=== PATIENT | male | born 1945 | race Caucasian/White ===

== ENCOUNTER 2024-06-19 13:10 | Inpatient (IN) | payer OTHER, BC ==
[2024-06-19] MEDS ORDERED: ACETAMINOPHEN 500 MG TAB PO PRN (16:28)
[2024-06-19] MEDS ORDERED: BENZONATATE 100 MG CAP PO PRN (16:29)
[2024-06-19 16:47] LABS: Sqamous Epithelial None Seen /HPF (None Seen); Urine Bacteria None Seen /HPF (<20); Urine Bilirubin NEGATIVE (Negative); Urine Blood 1+ (Negative); Urine Clarity Clear (Clear); Urine Color Light-Yellow (Yellow); Urine Crystals Unidentified Few /HPF (None Seen); Urine Culture Reflex Order NOT NEEDED; Urine Glucose TRACE (Negative); Urine Ketones NEGATIVE (Negative); Urine Micro Reflex YN NO BILL MICROSCOPIC; Urine Mucus Slight /HPF (None Seen); Urine Nitrite NEGATIVE (Negative); Urine Protein 3+ (Negative); Urine RBC <5 /HPF (None Seen); Urine Urobilinogen Normal (Normal); Urine WBC <5 /HPF (<5)
[2024-06-19 16:59] VITALS: BMI 21.2
[2024-06-19] MEDS ORDERED: POLYETHYL GLY 3350 17 GM/DOSE PO PRN (17:10)
[2024-06-19] MEDS ORDERED: HYDROCODONE/APAP 5/325 MG TAB PO PRN (17:10)
[2024-06-19] MEDS ORDERED: BUDESONIDE 0.5 MG/2 ML NEB NEB SCH (19:00)
[2024-06-19] MEDS: DOXYCYCLINE 100 MG CAP PO SCH (19:59)
[2024-06-19] MEDS: DOCUSATE NA/SENNA CONC 1 TAB PO SCH (19:59)
[2024-06-19] MEDS: APIXABAN 2.5 MG TABLET PO SCH (19:59)
[2024-06-19] MEDS ORDERED: CARBIDOPA/LEVODOPA 25/100 TAB PO SCH (20:00)
[2024-06-19] MEDS: ATORVASTATIN 40 MG TAB PO SCH (20:00)
[2024-06-19] MEDS: CARBIDOPA/LEVODOPA 25/100 TAB PO SCH (20:00)
[2024-06-19] MEDS ORDERED: HEPARIN 5000 UNIT/ML 1 ML VIAL SQ SCH (20:00)
[2024-06-19] MEDS ORDERED: predniSONE 20 MG TAB PO SCH (20:00)
[2024-06-19] MEDS: ARFORMOTEROL TARTRATE 15 MCG/2 ML VIAL.NEB NEB SCH (20:19)
[2024-06-19] MEDS: BUDESONIDE 0.5 MG/2 ML NEB NEB SCH (20:19)
[2024-06-20] MEDS: atenoloL 50 MG TAB PO SCH (05:34)
[2024-06-20] MEDS ORDERED: PANTOPRAZOLE 40MG TABLET PO SCH (06:30)
[2024-06-20] MEDS ORDERED: FERROUS SULFATE 325 MG TAB PO SCH (08:00)
[2024-06-20] MEDS: AMLODIPINE 5 MG TAB PO SCH (08:53)
[2024-06-20] MEDS: POTASSIUM CL SA 10 MEQ TAB PO SCH (08:54)
[2024-06-20] MEDS: TAMSULOSIN 0.4 MG SR CAP PO SCH (08:54)
[2024-06-20] MEDS: ASPIRIN EC 81 MG TAB PO SCH (08:54)
[2024-06-20] MEDS: FUROSEMIDE 20 MG TABLET PO SCH (08:57)
[2024-06-20] MEDS: FOLIC ACID 1 MG TABLET PO SCH (08:57)
[2024-06-20] MEDS: CYANOCOBALAMIN 1,000 MCG TAB PO SCH (08:57)
[2024-06-20] MEDS: dexAMETHasone 4 MG TAB PO SCH (08:57)
[2024-06-20 09:10] LABS: Absolute Lymphocytes (CBC) 0.9 K/uL (0.7-4.9); Absolute Monocytes 0.7 K/uL (0.1-1.3); Hematocrit 31.3 % (39.6-49.0); Hemoglobin 10.2 g/dL (13.6-17.9); Lymphocytes % 5.2 % (15.3-44.8); MCH 27.9 pg (27.0-35.0); MCHC 32.5 g/dL (32.0-36.0); MPV 9.1 fL (7.6-11.3); Monocytes % 4.2 % (3.3-12.3); Neutrophils % 90.6 % (41.7-73.7); Platelets 253 thou/uL (152-406); RBC Red Blood Cell Count 3.65 M/uL (4.33-5.43); Red Cell Distribution Width 16.4 % (12.1-15.2)
[2024-06-20 09:21] LABS: Albumin 2.7 g/dL (3.4-5.0); Magnesium 2.3 mg/dL (1.6-2.4); Prealbumin 11.5 mg/dL (20-40)
[2024-06-20 10:12] LABS: Blood Morphology Comment NOTED (NOT SEEN); Hypochromasia 2+; Platelet Estimate ADEQ; Platelets Clumped FEW; White Blood Cell Scan OK (OK)
[2024-06-20] MEDS: VALSARTAN 80 MG TAB PO SCH (10:28)
[2024-06-20] MEDS: VITAMIN D 400 UNIT TAB PO SCH (10:29)
[2024-06-20] MEDS: FERROUS SULFATE 325 MG TAB PO SCH (13:10)
[2024-06-20] MEDS: NA CHLORIDE 0.9% 1,000 ML IV SCH (18:16)
[2024-06-20] MEDS: DOCUSATE NA/SENNA CONC 1 TAB PO SCH (19:08)
[2024-06-20] MEDS: CARBIDOPA/LEVODOPA 25/100 TAB PO SCH (19:08)
--- NOTE | 2024-06-20 19:53 | RAD REPORT ---
EXAM DESCRIPTION: RADChest Single View06/20/2024 6:27 pm CLINICAL HISTORY: covid positive COMPARISON: No comparisonsChest Single View dated 03/08/2024; Chest Pa And Lat (2 Views) dated 2022; Chest Single View dated 09/13/2023No comparisonsNo comparisons TECHNIQUE: Portable AP view of the chest. FINDINGS: Mild hyperlucency and diffuse chronic appearing interstitial changes. Some confluent retic ular opacities seen in the right apex. No pneumothorax or effusion. The cardiomediastinal contours a re unremarkable. IMPRESSION: Few confluent reticular opacities seen in the right apex, may reflect scarring/atelectas is, versus COPD exacerbation.
--- NOTE | 2024-06-21 02:21 | HP ---
Date of Admission: 06/19/2024 Time Of Service: 1 p.m. Chief Complaint: "I have COVID. I am weak. I have been falling." History Of Present Illness: Mr. 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 Mr. Nunes had a few days of cough, congestion, nausea and some vomiting with general decline and was taken to [facility]. His workup showed he was COVID positive. Chest CT scan, however, did not show advanced pneumonia. His scan did identify 1.6 cm right kidney mass, which was suspicious for renal cell carcinoma, which has been found previously and the patient is rafa re of. In addition, a 3.6 cm abdominal aortic aneurysm was identified, enlarged prostate and again o n the chest, moderate to marked emphysema. There was no evidence of pulmonary embolus. His KUB did show a large stool burden. He was admitted and received levofloxacin for empiric antibiotics, had an titussives and steroids for the COVID. Did not receive remdesivir or Paxlovid. At this current hosp italization, he will receive Paxlovid. He did require some oxygen 2 L by nasal cannula for hypoxia. Urinalysis was negative and kidney function suggested some dehydration. Creatinine 1.32, BUN 25. G lucose was 148. Liver function studies show AST of 15. Total protein 6.4. Hemoglobin 11, hematocri t 34. As a result of the patient's COVID positivity and chronic pulmonary issues, he is at risk of s evere worsening and therefore requires careful medical evaluation and management. In addition, he lopez s declined significantly as when he was evaluated by Physical and Occupational Therapy Service, he wa s found to be performing much below his baseline level, requiring moderate assist for bed mobilizatio n, [id number], beginning to ambulate only 2 to 3 steps at the bedside and he was found to require 2 L of oxygen via nasal cannula while he was mobilizing. In addition, he did have some issues of pote ntial aspiration and would require Speech to help clear his return to thin liquids and regular solids . As a result, he is determined to be appropriate candidate for inpatient rehabilitation. We will h ave medical management and physical therapy done in combination. Past Medical History: As noted above. Allergies: PENICILLIN. Imaging: Done previously. Chest x-ray on 06/17, shows slightly increased reticulonodular opacificat ion of the right upper lobe, indeterminate acuity. There was a large stool burden on KUB. CT scan o f the chest done 06/17, no evidence of pulmonary thromboembolism. Iqwjxonj-ln-vncaid upper lobe pred ominant central lobular and paraseptal emphysema. Right apical pleural parenchymal scarring. 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 The patient did say he fell about 6 months ago and had a fracture there with some displacement and impaction. There is remodeling of possible destructive changes in the left clavicle head medially. He said there has been decreased range of motion in the left shoulder for quite an extended period of time, just extends into the sternoclavicular joint. Th ere was also the renal mass noted. CT scan of the abdomen and pelvis on 06/17 does show no acute fin dings. Heterogeneous enhancing 1.6 cm mass in the right kidney suspicious for renal cell carcinoma. There was infrarenal abdominal aortic aneurysm measuring 3.6 cm, enlarged prostate, and moderate to marked emphysema. Medications: Tylenol 500 mg every 4 hours as needed, Norvasc 5 mg daily, Eliquis 2.5 mg daily, arfor moterol 15 mcg nebulizer treatment twice daily, aspirin 81 mg daily, Tenormin 50 mg daily, atorvastat in 40 mg at bedtime, Tessalon Perles 100 mg every 6 hours, carbidopa/levodopa 25/100 one tablet twice daily, vitamin C 1000 daily, dexamethasone 6 mg daily, Colace 2 tabs twice daily, ferrous sulfate 325 mg daily, folate 1 mg daily, melatonin 3 mg at bedtime, Lasix 40 mg daily, Zofran 4 mg ev theo 4 hours as needed, potassium 10 mEq daily, Flomax 0.4 mg daily, Diovan 80 mg daily, and vitamin D 50,000 units weekly. Family History: Noncontributory. Social History: The patient lives at home with family. He was fully independent prior to his declin e. No alcohol, tobacco, or IV drug use. Laboratory Studies: White blood cell count elevated to 17.7. Of note, he is on steroids. Will have repeat chest x-ray, urinalysis done. Neutrophils 90.6%, hemoglobin 10.2, hematocrit 31.3. Sodium 1 34, potassium 5.0, chloride 104, carbon dioxide 26, BUN 42, creatinine 1.48, glucose 109. Calcium 9. 6, magnesium 2.3. Albumin 2.7, prealbumin 11.5. Urinalysis: 1+ blood, 3+ protein, trace glucose. Review of Systems: As noted, there was decreased range of motion in the left shoulder. There was also some slight issue in terms of bruising or pain from the fracture in the left humerus, and he thought there was also a fracture in the left forearm from a chronic fall more than 6 months ago. He did say while he was in the room he did slide down and impacted the left side shoulder and the back of his head. He did not call the nurse and he was up back in bed at the time I evaluated him. Those areas were palpated and there were no new findings. He denied any new issues or pain in that area, that is the back of the h ead and the left upper extremity. Bed alarm and chair alarm will be in place. The patient is right at the nursing station to be observed carefully. Current Level Of Functioning: Setup assistance for eating. Supervision for oral hygiene. Moderate assistance for toilet hygiene. Showering, maximum assistance. Upper body dressing, moderate assista nce. Lower body dressing, maximal assistance. Donning/doffing footwear maximal assistance. Rolling right to left and left to right, moderate assistance. Sit to lying and lying to sitting, and slidin g to side of bed, moderate assistance. Sit to stand, moderate assistance. Bed to chair, moderate as sistance. Toileting, moderate assistance. Ambulation, moderate assistance, did cover 3 feet with a rolling walker. Physical Examination: Vital Signs: Blood pressure 148/63, pulse 56, respiratory rate of 16, temperature 97, oxygen saturat ion 92%. General: Mr. Nunes is resting in bed. He is in no acute distress. He does not have oxygen via delaney al cannula. HEENT: He is normocephalic, atraumatic. Palpation back of the head shows no area of tenderness. Chest: Mildly decreased breath sounds with good air movement. Abdomen: Soft. Extremities: No cyanosis, clubbing, or edema noted. Heart: Regular. Neurological: No cranial nerve deficits. He does have decreased range of motion elevating his left elbow and anterior lateral and posterior movement of left shoulder, which is chronically noted. X-ra y indicated chronic fracture and issues of the left acromioclavicular joint. Additionally, mild diff use weakness in the upper and lower extremities around 4/5. Decreased stocking glove loss to light t ouch, temperature. Depressed reflexes. Intact coordination. Assessment: Mr. Nunes is admitted to the inpatient rehabilitation unit with impairment category 20, miscellaneous. Impairment group code is 16, debility. Etiologic diagnosis is COVID positivity. Hi s comorbidities are respiratory failure; coronary artery disease; congestive heart failure, diastolic ; chronic obstructive pulmonary disease; decreased mobility; decreased physical functioning; hyperten dejah; Parkinson disease; right kidney mass; abdominal aortic aneurysm. Plan: 1.Physical, occupational, and speech therapy for 3.5 hours, 5 of 7 days. 2.We will continue for hypertension the Norvasc in addition to the fluid management with Lasix and p otassium replacement continued. 3.For constipation, which the patient said he has not had a bowel movement about 2 days, he has the Senokot. Flomax for prostate hypertrophy. Diovan is also for his blood pressure control. Paxlovid for his COVID. Folic acid, aspirin, and Eliquis for stroke and DVT risk reduction. Vitamin B12 for his anemia. Sinemet for Parkinson disease. Tessalon Perles for cough. Lipitor for dyslipidemia. T ylenol for pain. We will have melatonin as needed for insomnia. Comorbidities That Are Impacting Rehabilitation: The patient is somewhat impulsive, and he did not c all the nurse and reportedly slides down onto the floor. We will have bed alarm and chair alarm in p lace. In addition, decreased range of motion in the left upper extremity from chronic fall and fract ure, and of course positivity for COVID and he is on isolation. We will continue the protocol of 10 days. He is on the Paxlovid as well. Does have some of course debility with decreased mobility, dec reased transfers. Will have gait belt. Ambulate with a chair behind at all times. Rehab Specific Plan: Mr. Nunes will have physical, occupational, and speech therapy for 3.5 hours, 5 of 7 days to improve his ability to transfer from bed to chair to toilet to shower, to be able to a mbulate 250 feet with modified independence and a rolling walker, propel a wheelchair 250 feet, up an d down 10 steps with bilateral handrails and perform his cognitive functioning independently. Mr. Nunes has good understanding of the process of admission to the inpatient rehabilitation facilit y, how he will benefit from physical, occupational, and speech therapy. He will have 24 hours a day, 7 days a week skilled rehabilitation nursing; daily physician evaluation and management for integrat ing his therapy and medical care; and Social Service evaluation and management, discharge planning, h ome equipment, and continuing therapy. If need be assistance will be sought from the hospitalist ser vice, Pulmonary Service, and Infectious Disease Service. Barriers To Discharge: As noted, he is somewhat impulsive, which could lead to fall when the patient is not being observed. He will have again bed alarm and chair alarm, and right at the nurse's stati on. His COVID could potentially worsen. Currently, he is off oxygen and may need steroids for an ex tended period of time. In addition, there is elevated white count, which may be due to steroids, but that may be due to pneumonia as well, so infection will be ruled out. Length Of Stay: About 12 days. Disposition: Home with family. Prognosis: Good. Rehab Specific Goals: 1.Become independent with upper and lower body dressing, and donning/doffing of footwear. 2.Independently ambulate 250 feet with modified independence. 3.Independently go up and down 10 steps. 4.Independently propel a wheelchair 250 feet. 5.Independently perform cognitive functioning. The above goals were reviewed with Mr. Nunes. He is in agreement. By signing this document, I acknowledge I personally performed a full physical examination on Mr. Sunny cantu no later than 24 hours after his admission to the inpatient rehabilitation facility and determine d that he is able to tolerate the above course of treatment at an intensive level for a reasonable pe riod of time. A detailed individualized plan of care for him will be completed by hospital day 4 based on the preadmission screen, history and phy sical, and therapy evaluations. SRIRAM/JACKELYN Voice ID: [id number]
[2024-06-21 08:24] LABS: Absolute Lymphocytes (CBC) 0.8 K/uL (0.7-4.9); Absolute Monocytes 0.9 K/uL (0.1-1.3); Absolute Neutrophil 14.1 K/uL (1.8-8.0); Basophils % 0.1 % (0-1.3); Hematocrit 33.1 % (39.6-49.0); Hemoglobin 10.8 g/dL (13.6-17.9); MCH 27.9 pg (27.0-35.0); MCHC 32.7 g/dL (32.0-36.0); MCV 85.3 fL (80-100); Monocytes % 5.5 % (3.3-12.3); Neutrophils % 89.4 % (41.7-73.7); Platelets 304 thou/uL (152-406); RBC Red Blood Cell Count 3.88 M/uL (4.33-5.43); Red Cell Distribution Width 16.4 % (12.1-15.2)
[2024-06-21 08:30] LABS: Anion Gap 8.9 mEq/L (5.0-15.0); Potassium 3.9 mEq/L (3.5-5.1)
[2024-06-21] MEDS: DRISDOL (VITAMIN D=ERGOCALCIFEROL) 50000 UNIT CAP PO SCH (09:51)
[2024-06-21] MEDS: FUROSEMIDE 20 MG TABLET PO SCH (09:52)
[2024-06-21] MEDS: NIRMATRELVIR/RITONAVIR TABLET PO SCH (10:06)
[2024-06-21] MEDS: ONDANSETRON 4 MG (ODT) TAB PO PRN (12:33)
[2024-06-21] MEDS ORDERED: MAGNESIUM HYDROXIDE 8% 30 ML PO PRN (14:01)
[2024-06-21] MEDS: MELATONIN 3 MG TABLET PO PRN (20:49)
[2024-06-21] MEDS: HEPARIN 5000 UNIT/ML 1 ML VIAL SQ SCH (21:25)
--- NOTE | 2024-06-22 01:12 | PN ---
Date of Progress Note: 06/21/2024 Rnof-[id number]-vcrt Progress Note Visit. Time Of Service: 1 p.m. Subjective: Mr. Nunes is resting comfortably in bed. His is at the bedside. He is not in any acute distress. He has COVID. He is receiving now Paxlovid and is doing well so far and no new com plaints. Objective: No fevers or chills, myalgias or arthralgias, rash, headache, weight change. No other po sitives noted on systems review. Physical Examination: Vital Signs: Blood pressure 145/67, pulse 65, respiratory rate 15, temperature 97.5, oxygen saturati on 96%. General: Mr. Nunes again is resting comfortably. HEENT: He is normocephalic, atraumatic. Sclerae are anicteric. Oropharynx pink, moist. Neck: Supple. Chest: Clear. Extremities: No clubbing, cyanosis, or edema. Diffuse weakness in upper and lower extremities. Laboratory Studies: White blood cell count 15.8, down from 17.7; hemoglobin 10.8; platelets 304. So dium 133, potassium 3.9, chloride 104, carbon dioxide 24, BUN 41, creatinine 1.28, glucose 120, calci um 9.1. Lactate dehydrogenase is elevated to 245 with procalcitonin at 0.08. Medications: Tylenol 500 mg every 4 hours as needed, Norvasc 5 mg daily, Brovana 15 mcg nebulizer tw ice daily, aspirin 81 mg daily, atenolol 50 mg daily, Tessalon Perles 100 mg every 6 hours, Dulcolax suppository 10 mg as needed, Pulmicort 0.5 mg nebulizer twice daily, Sinemet 25/100 twice daily, garcía min B12 of 1000 mcg daily. Steroids, he is taking 6 mg dexamethasone daily. Silverio, ferrous sulfat e 325 mg daily, folic acid 1 mg daily, Lasix 40 mg daily, milk of mag 30 twice daily as ne eded, heparin 5000 units subcutaneously twice daily, melatonin 3 mg at bedtime. He is on Paxlovid pe r protocol and Zofran 4 mg every 4 hours as needed, potassium 10 mEq daily, Senokot 2 tablets twice d aily, Diovan 80 mg daily. X-ray Imaging: As noted, x-ray done on 06/20/2024, showed few confluent reticular opacities in the r ight apex, may reflect scarring versus atelectasis versus COPD exacerbation. Progress Made With Physical And Occupational Therapy: Today, completed gait training, 40 feet, 30 fe et, and with minimal assistance with a rolling walker. He completed wheelchair mobilization at 175 f eet with contact guard assistance. With occupational therapy, upper body dressing, minimum assistanc e; lower body dressing, also minimum assistance; standby assistance for pulling on and putting off so cks; minimum assistance for functional transfers, wheelchair to toilet. Speech, long-term goals to i nclude improving memory, executive functioning from maximum assistance, moderate assistance, improve safety awareness and independence before returning to home. Mr. Nunes is making again early progress with his physical and occupational therapy given his COVID restrictions and isolation. His shortness of breath is improving. White blood cell count, possibly related to steroid use, has improved. He is on Paxlovid and of course, will continue per protocol. Assessment: Mr. Nunes is a 79-year-old patient in rehabilitation unit with COVID positivity and haily ility. He has had multiple falls and apparently a sliding fall while in the room, which has not been repeated, and he has bed alarm and chair alarm as well. He has respiratory failure; coronary artery disease; congestive heart failure, which is diastolic; chronic obstructive pulmonary disease; decrea sed mobility; decreased physical functioning; hypertension; Parkinson' disease; right kidney mass; ab dominal aortic aneurysm. Plan: 1.He will continue with physical, occupational, and speech therapy for 3.5 hours, 5 of 7 days. 2.He has list of comorbid conditions as noted above, and his medications worked well. Those will be continued, including for the meantime while he is on the Paxlovid, heparin subcutaneously for DVT pr ophylaxis, Tessalon Perles for cough, Lipitor for dyslipidemia, Tylenol for pain, Sinemet 25/100 for his Parkinson's disease, and the aspirin and folic acid for stroke risk reduction. Comorbidities That Are Impacting Rehabilitation: As noted, he was somewhat impulsive and did have a reported slide out, actually for while he was in the room, that has not been repeated. He has chair alarm and bed alarm in place and he is right at the nursing station. LB/MODL Voice ID: [id number] Report ID: [id number]
[2024-06-22] MEDS: BISACODYL 10 MG RECTAL SUPP PR PRN (05:02)
[2024-06-22 07:19] VITALS: TEMP 97
[2024-06-22] MEDS: NA CHLORIDE 0.9% 1,000 ML IV SCH ×3 (09:36→14:00)
[2024-06-22] MEDS: NA CHLORIDE 0.9% 1,000 ML IV ONE ×2 (09:54→17:04)
--- NOTE | 2024-06-22 10:59 | RAD REPORT ---
EXAM DESCRIPTION: CT - Head Brain Wo Cont - 06/22/2024 10:24 am CLINICAL HISTORY: confused COMPARISON: No comparisons TECHNIQUE: Noncontrast head CT images were obtained without IV contrast. Multiplanar reformats were generated and reviewed. All CT scans are performed using dose optimization technique as appropriate and may include automated exposure control or mA/KV adjustment according to patient size. FINDINGS: No intracranial hemorrhage, mass, or edema. Midline structures are unremarkable. Moderate diffuse parenchymal volume loss. Patchy periventricular and deep white matter hypodensities, nonspecific, but most suggestive of chron ic small vessel ischemic changes. Purcell-white matter differentiation is preserved, without evidence of acute infarct. No abnormal extra- axial fluid collections. Mastoid air cells and visualized portions of the paranasal sinuses are clear. No acute bony findings. IMPRESSION: No evidence of an acute intracranial process. Chronic findings as above.
[2024-06-22 13:16] LABS: Absolute Basophils 0.1 K/uL (0-0.5); Absolute Lymphocytes (CBC) 1.2 K/uL (0.7-4.9); Absolute Monocytes 3.2 K/uL (0.1-1.3); Absolute Neutrophil 24.4 K/uL (1.8-8.0); Basophils % 0.2 % (0-1.3); Hematocrit 27.8 % (39.6-49.0); Hemoglobin 9.3 g/dL (13.6-17.9); Lymphocytes % 4.2 % (15.3-44.8); MCH 28.2 pg (27.0-35.0); MCHC 33.4 g/dL (32.0-36.0); MCV 84.4 fL (80-100); MPV 8.6 fL (7.6-11.3); Monocytes % 11.2 % (3.3-12.3); Neutrophils % 84.4 % (41.7-73.7); Platelets 376 thou/uL (152-406)
[2024-06-22 13:28] LABS: Anion Gap 13.6 mEq/L (5.0-15.0); Potassium 4.6 mEq/L (3.5-5.1)
[2024-06-22] MEDS: METRONIDAZOLE 500mg IVPB 500 MG/100 ML BAG IV SCH (14:48)
[2024-06-22] MEDS: CEFEPIME 2 GM in NA CHLORIDE 0.9% 100 ML IV SCH (15:00)
--- NOTE | 2024-06-22 15:17 | RAD REPORT ---
EXAM DESCRIPTION: [facility] Single View06/22/2024 3:07 pm CLINICAL HISTORY: Chest pain COMPARISON: June 20, 2024 FINDINGS: No significant change in the right upper lobe opacities which may represent scarring or at ypical pneumonia Mild additional chronic appearing lung opacities are present Heart is normal size. Old traumatic changes left humeral head/neck
[2024-06-22] MEDS ORDERED: VANCOMYCIN 1.25 GM in NA CHLORIDE 0.9% 250 ML IVPB SCH (16:00)
[2024-06-22] MEDS: VANCOMYCIN 1.25 GM in NA CHLORIDE 0.9% 250 ML IVPB SCH (16:10)
[2024-06-22] MEDS ORDERED: PIPER TAZO 3.375 GM in NA CHLORIDE 0.9% 100 ML IV SCH (17:00)
[2024-06-22] MEDS ORDERED: NA CHLORIDE 0.9% 1,000 ML ONE (17:08)
--- NOTE | 2024-06-22 17:51 | P.CNS ---
Date of Consult: 06/22/24 Reason for Consult: CAN, hypotension Requesting Physician: Josh Caba History of Present Illness: 79yo M, PMH: Admitted to inpatient rehab 2 days ago from [facility] where he was admitted for ~48hrs with COVID-19 infection. He presented to [facility] with malaise/fatigue, cough, weakness. Rehab nursing staff report patient was noted to be slightly confused last night and this morning was more fatigued appearing, and noted to have low blood pressure and brief syncopal episode after working with physical therapy. His blood pressure was 80s/60s. CT head was performed without any acute findings. Labwork was repeated which noted significant increase in leukocytosis and worsening of his renal function. They report decreased urine output with minimal to no retained urine when evaluated by bladder scan today. He denies any specific worsening / new symptoms. He currently reports having increased weakness and fatigue over the last 24hrs. is at bedside during my evaluation who agrees, and states he currently looks much better compared to this morning, and is much closer to his baseline. He was given a liter of NS bolus with improvement, and started on NS at 100 ml/hr, blood cultures obtained. At time of my evaluation, lactate resulted as 4.8, the complete 30cc/kg sepsis bolus was ordered. (received 1.3L of IVF already, and I ordered additional 700ml to be given. Weight: 63kg.) He has been afebrile during his stay here. Allergies Penicillins Allergy (Verified 06/19/24 16:02) Hives/Rash Home Medications: Amlodipine [Norvasc] 5 mg PO DAILY 06/19/24 Arformoterol Tartrate [Brovana] 15 mcg NEB BIDRESP 06/19/24 Aspirin [Aspirin EC 81 MG] 1 tab PO DAILY 06/19/24 Atorvastatin Calcium [Lipitor] 40 mg PO BEDTIME 06/19/24 Carbidopa/Levodopa [Carbidopa-Levodopa 25-100 Tab] 2 tab PO BID 06/19/24 Cholecalciferol (Vitamin D3) [Vitamin D 400 IU TAB*] 1 tab PO DAILY 06/19/24 Clopidogrel Bisulfate [Plavix*] 1 tab PO DAILY 06/19/24 Cyanocobalamin (Vitamin B-12) [Vitamin B12] 1,000 mcg PO DAILY 06/19/24 Ferrous Sulfate [Iron] 1 tab PO DAILY 06/19/24 Folic Acid 1 mg PO DAILY 06/19/24 Furosemide [Lasix] 2 tab PO DAILY 06/19/24 Irbesartan 150 mg PO DAILY 06/19/24 Polyethylene Glycol 3350 [Miralax] 1 packet PO DAILY PRN 06/19/24 Potassium Chloride [Klor-Con 10] 10 meq PO DAILY 06/19/24 Tamsulosin [Flomax] 0.4 mg PO DAILY 06/19/24 atenoloL [Atenolol] 1 tab PO DAILY 06/19/24 dexAMETHasone [Decadron] 6 mg PO DAILY 06/19/24 - Past Medical/Surgical History Diabetic: No -: htn -: copd -: emphysema -: stroke left sided weakness -: renal mass Past Surgical History: Unable to obtain - Social History Smoking Status: Former smoker Alcohol use: No CD- Drugs: No Caffeine use: No Place of Residence: Home Review of Systems 10-point ROS is otherwise unremarkable Physical Examination Temp Pulse Resp BP Pulse Ox 97.0 F 61 20 104/53 L 99 06/22/24 07:18 06/22/24 16:17 06/22/24 16:17 06/22/24 16:17 06/22/24 07:18 General: Alert, In no apparent distress, Oriented x2 (to self and place; thought was 2022, but corrected to 2023) HEENT: PERRLA, EOMI, Sclerae nonicteric Neck: Supple, No LAD Respiratory: Diminished, Other (mild expiratory wheeze. nonlabored on room air) Cardiovascular: No edema, Regular rate/rhythm Gastrointestinal: Soft and benign, Non-distended, No tenderness Musculoskeletal: No contractures, No tenderness Integumentary: Other (scattered ecchymosis) Neurological: Normal speech, Normal affect Laboratory Data (last 24 hrs) 06/22/24 06/22/24 13:05 13:05 WBC 28.90 H Hgb 9.3 L Hct 27.8 L Plt Count 376 Sodium 134 L Potassium 4.6 BUN 85 H Creatinine 2.66 H Glucose 174 H Physician Review Additional Text: Problem List Hypotension Syncope lactatemia CAN Leukocytosis COVID-19 infection, acute COPD, emphysema; chronic h/o hypertension h/o Parkinson's h/o GERD / Gastric ulcer years ago h/o constipation Hypotension Syncope lactatemia CAN Leukocytosis SIRS 1/4 (WBC), lactate >4, BP < 90 systolic patient does not appear toxic at time of my evaluation. Is receiving 30cc/kg sepsis bolus per protocol, and Dr. Caba started empiric antibiotics and checked blood cultures reported patient has not been on blood pressure medications or lasix for several months to >1 year. These were listed as home meds from paperwork from [facility], and did receive these medications here. External pharmacy query did not show any recent prescriptions this year for these medications. Suspect hypotension, CAN, and elevated lactate secondary to hypotension / pre- renal, and less likely sepsis. check CPK, given recent paxlovid and atorvastatin. pt denies any muscle pains, but given can, will check repeat lactate pending COVID-19 infection, acute COPD, emphysema; chronic on room air, stop paxlovid confirm home meds, restart as appropriate discussed with , will bring in accurate / updated med list h/o Parkinson's continue sinemet as prescribed by Dr. Caba Time Spent Managing Pts care (In Minutes): 65
[2024-06-22] MEDS: MEGESTROL 40 MG TAB PO SCH (20:50)
[2024-06-22] MEDS: MIDODRINE HCL 5 MG TABLET PO SCH (20:50)
[2024-06-22 21:17] VITALS: BP 121/57
--- NOTE | 2024-06-22 21:57 | PN ---
Date of Progress Note: 06/22/2024 Time Of Service: 1:00 p.m. Subjective: Mr. Nuens had multiple episodes of near syncopal episodes with blood pressures dropping to the systolics around the mid 70s. He has white count when checked today was significantly elevat ed to 20,900 from 15,800 yesterday. Neutrophils 84.9. His procalcitonin and lactic acid are elevate d today. Lactic acid increased to 4.8 with procalcitonin 0.8. He did meet criteria for sepsis with low blood pressure, elevated lactic acid, elevated procalcitonin, and has been now on 3 antibiotics, started on Flagyl 500 mg q.8, vancomycin 1.25 g every 48 hours, and cefepime 2 g every 24 hours. He is continued on his carbidopa and levodopa, aspirin, Tessalon Perle, and had discontinued his Paxlovi d, which may have been contributing factor. Head CT scan showed no acute ischemic hemorrhagic findin gs and repeat chest CT scan showed no significant change in the right upper lobe opacity represent sc arring or other atypical pneumonia. There is old trauma of the left humeral head and neck and mild a dditional chronic appearing lung opacities noted. Blood cultures x2 are pending and the patient is t o be transferred to telemetry on hospitalist service. As a result of his very low blood pressure, he was unable to do any out of bed therapy today and did not complete 3.5 hours of therapy. He did bed mobilization therapy and worked with the speech therapist. Review of Systems: Again, diffuse weakness, fatigue, but he was alert, oriented, and follows commands while in bed with the head slightly downward. Physical Examination: Vital Signs: Blood pressure currently 104/53, again the lowest this morning was 74/61, pulse 61, res piratory rate 18, temperature 97, ox saturation 99%. General: Mr. Nunes is lying in bed. He is in no significant distress. HEENT: He appears normocephalic, atraumatic. Sclerae anicteric. Oropharynx pink, moist. Neck: Supple. Chest: Decreased breath sounds. Abdomen: Soft. Extremities: No significant edema, cyanosis, or clubbing noted. Laboratory Studies: As noted. X-ray/imaging: As noted. Medications: As noted. Progress Made With Physical And Occupational Therapy: Today, again he did bed mobility exercises, tu rning in bed with contact guard to minimum assistance. Supine to sit with minimum assistance. He di d "flop back" in his bed due to significant drop in his blood pressure and fatigue. With occupationa l therapy, again did deep breathing exercises, worked in bed, did Thera-Band exercises, and did have some visual cues required and tactile stimulation required to keep interacting. With speech, recall temporal and spatial orientation tasks with 87% accuracy. Short-term recall to improve 2 of 3 unrela william pictures after 3 minutes recall. On second attempt, 3/3 on recall. Mr. Nunes had a significant setback with very low blood pressures and potential sepsis in addition t o needing multiple antibiotics IV. Assessment: Mr. Nunes is a 79-year-old patient in rehabilitation with COVID positivity and was on P axlovid and along with low-dose steroids and he had a significant drop in his blood pressures. He wa s also on multiple antihypertensive medications, which are being held. Those medications were report ed by the patient's not being given for an extended period of time. However, when he came to [facility] from [facility], those medications were on board. Those include Tenormin 50 mg da carol, Norvasc 5 mg daily. He now has pressure support with midodrine. He has received 3 L of normal saline and will be monitored in telemetry. He has comorbidities Parkinson disease, the COVID positiv ity, possible pneumonia seen on x-ray, poor appetite with nausea, hypokalemia. Plan: 1.For now, therapy held and he is in bed. He may be transferred to the acute care floor for telemet ry monitoring. 2.We will continue with IV antibiotics as noted. We will continue with fluid support. Continue wit h appetite stimulation. Continue with pressure support with midodrine and will have WILLIAM hose and abd ominal binders when out of bed and patient if he is on the telemetry floor for a day or 2, then should be able to come back up to the unit to resume his therapy . SRIRAM/JACKELYN Voice ID: [id number] Report ID: [id number]
--- NOTE | 2024-06-24 12:58 | EKG ---
Test Date: 2024-06-22 Test Time: 13:33:19 Hand Almond Blancher: PETE MEASUREMENT RESULTS: Intervals: Rate: 65 AK: 132 QRSD: 116 QT: 432 QTc: 449 Candler: P: 29 AK: 132 QRS: 39 T: 63 INTERPRETIVE STATEMENTS: Normal sinus rhythm Incomplete right bundle branch block Borderline ECG No previous ECG available for comparison Electronically Signed On 06-24-24 12:55:54 CDT by Edwin Ritter
== END 2024-06-22 21:00 | disposition short-term general hospital (02) | DRG 177 ==
LOC: 5TH 15:59
PROVIDERS: ADMIT Psychiatry & Neurology Neurology with Special Qualifications in Child Neurology; ATTEND Psychiatry & Neurology Neurology with Special Qualifications in Child Neurology
DX: U07.1 COVID-19 (principal); J18.9 Pneumonia, unspecified organism; J96.91 Respiratory failure, unspecified with hypoxia; C64.1 Malignant neoplasm of right kidney, except renal pelvis; I50.32 Chronic diastolic (congestive) heart failure; N17.9 Acute kidney failure, unspecified; R53.81 Other malaise; J44.9 Chronic obstructive pulmonary disease, unspecified; J43.9 Emphysema, unspecified; N40.0 Benign prostatic hyperplasia without lower urinary tract symptoms; I71.40 Abdominal aortic aneurysm, without rupture, unspecified; E86.0 Dehydration; I11.0 Hypertensive heart disease with heart failure; I95.9 Hypotension, unspecified; R55 Syncope and collapse; K59.00 Constipation, unspecified; R11.0 Nausea; E87.6 Hypokalemia; G20.A1 Parkinson's disease without dyskinesia, without mention of fluctuations; E78.5 Hyperlipidemia, unspecified; G47.00 Insomnia, unspecified; Z87.891 Personal history of nicotine dependence; Z86.73 Personal history of transient ischemic attack (TIA), and cerebral infarction without residual deficits
CPT/HCPCS: 36415; 70450; 71045; 80048; 81001; 82040; 82550; 82947; 83605; 83615; 83735; 84134; 84145; 85025; 87040; 87086; 87088; 92523; 93005; 94640; 97110; 97116; 97129; 97161; 97165; 97530; 97542; J0692; J1644; J7030; J7050; J7605; J7626; J8499; J8540; Q0162

== ENCOUNTER 2024-06-22 18:40 | Inpatient (IN) | payer OTHER, BC ==
[2024-06-22] MEDS ORDERED: ONDANSETRON 4 MG/2 ML VIAL IV PRN (21:46)
[2024-06-22] MEDS ORDERED: MORPHINE 2 MG/ML SYR IV PRN (21:46)
[2024-06-22] MEDS ORDERED: ACETAMINOPHEN 500 MG TAB PO PRN (21:46)
[2024-06-22] MEDS ORDERED: ALBUTEROL 2.5 MG/3 ML NEB SOL NEB PRN (21:46)
[2024-06-22] MEDS ORDERED: HYDRALAZINE HCL 20 MG/ML VIAL IV PRN (21:51)
[2024-06-22] MEDS ORDERED: BENZONATATE 100 MG CAP PO PRN (21:51)
[2024-06-22] MEDS ORDERED: Oxycodone HCl/Acetaminophen 5/325 MG TAB PO PRN (21:51)
[2024-06-22] MEDS ORDERED: MELATONIN 5 MG TABLET PO PRN (21:51)
[2024-06-22] MEDS: NA CHLORIDE 0.9% 1,000 ML IV SCH (22:00)
--- NOTE | 2024-06-22 22:06 | P.HP ---
Certification for Inpatient With expected LOS: >2 Midnights Patient will require the following post-hospital care: None Practitioner: I am a practitioner with admitting privileges, knowledge of patient current condition, hospital course, and medical plan of care. Services: Services provided to patient in accordance with Admission requirements found in Title 42 Section 412.3 of the Code of Federal Regulations Patient History Date of Service: 06/22/24 Reason for admission: Hypotension, sepsis History of Present Illness: 79-year-old male with past medical history of hypertension, COPD/emphysema, Parkinson's disease, gout, recent COVID treated at [facility] and admitted to rehab. For weakness and asthenia. Patient was restarted on blood pressure as well as diuretics. Patient developed subsequent hypotension as well as rising lactic acid. He was started on empirical antibiotics at rehab today and IV fluid bolus. His blood pressure has improved to systolic in the 120s now. He was also noted with rising leukocytosis from 17K-28K this morning. Patient has been on IV Decadron for COVID. He has been transferred to the medical unit/ICU for close monitoring and further management. He still feels weak but states he is much better compared to earlier. He denies any complaint now. Allergies Penicillins Allergy (Verified 06/19/24 16:02) Hives/Rash Home Medications: Amlodipine [Norvasc] 5 mg PO DAILY 06/19/24 Arformoterol Tartrate [Brovana] 15 mcg NEB BIDRESP 06/19/24 Aspirin [Aspirin EC 81 MG] 1 tab PO DAILY 06/19/24 Atorvastatin Calcium [Lipitor] 40 mg PO BEDTIME 06/19/24 Carbidopa/Levodopa [Carbidopa-Levodopa 25-100 Tab] 2 tab PO BID 06/19/24 Cholecalciferol (Vitamin D3) [Vitamin D 400 IU TAB*] 1 tab PO DAILY 06/19/24 Clopidogrel Bisulfate [Plavix*] 1 tab PO DAILY 06/19/24 Cyanocobalamin (Vitamin B-12) [Vitamin B12] 1,000 mcg PO DAILY 06/19/24 Ferrous Sulfate [Iron] 1 tab PO DAILY 06/19/24 Folic Acid 1 mg PO DAILY 06/19/24 Furosemide [Lasix] 2 tab PO DAILY 06/19/24 Irbesartan 150 mg PO DAILY 06/19/24 Polyethylene Glycol 3350 [Miralax] 1 packet PO DAILY PRN 06/19/24 Potassium Chloride [Klor-Con 10] 10 meq PO DAILY 06/19/24 Tamsulosin [Flomax] 0.4 mg PO DAILY 06/19/24 atenoloL [Atenolol] 1 tab PO DAILY 06/19/24 dexAMETHasone [Decadron] 6 mg PO DAILY 06/19/24 - Past Medical/Surgical History Diabetic: No -: htn -: copd -: emphysema -: stroke left sided weakness -: renal mass - Family History Family History: Reviewed- Non-Contributory - Social History Smoking Status: Never smoker Smoking therapy provided: No Patient receptive to therapy: No Alcohol use: No CD- Drugs: No Caffeine use: No Review of Systems 10-point ROS is otherwise unremarkable Physical Examination - Physical Exam General: Alert, In no apparent distress, Oriented x3 HEENT: Atraumatic, Normocephalic, PERRLA Neck: Supple, 2+ carotid pulse no bruit, JVD not distended Respiratory: Clear to auscultation bilaterally, Normal air movement Cardiovascular: Normal pulses, Regular rate/rhythm, Normal S1 S2 Gastrointestinal: Normal bowel sounds, Soft and benign, Non-distended, No ascites Musculoskeletal: No clubbing, No swelling, No contractures Neurological: Normal speech, Normal strength at 5/5 x4 extr Assessment and Plan - Problems (Diagnosis) (1) Acute sepsis Current Visit: Yes Status: Acute (2) Acute renal failure Current Visit: Yes Status: Acute (3) COVID-19 virus RNA test result positive at limit of detection Current Visit: Yes Status: Acute (4) Parkinsons disease Current Visit: Yes Status: Acute (5) COPD (chronic obstructive pulmonary disease) Current Visit: Yes Status: Acute (6) Hypotension Current Visit: Yes Status: Acute - Plan Impression Acute septic shock Acute kidney injury Acute COVID-pneumoniaon Paxlovid and Decadron Marked leukocytosis History of Parkinson's disease COPDstable Astheniaon acute rehab Plan Status post admitted to ICU, continue close monitoring Start gentle IV fluid with normal saline Start empirical antibiotics with meropenem given allergy profile Obtain urinalysis to rule out UTI Chest x-ray shows no acute infiltrate, continue empirical antibiotics Since multiple days of high-dose steroid for COVID, will will DC Decadron now Monitor WBC Follow blood culture x 2 Start PT and OT Lovenox for DVT prophylaxis Full code for now Elevated creatinine, follow with IV hydration Keep MAP greater than 70 Add midodrine as needed if recurrent low blood pressure Hold all BP medications including atenolol DuoNebs as needed Total time spent evaluation greater than 60 Plan to discharge in: 48 Hours - Advance Directives Does patient have a Living Will: No Does patient have a Durable POA for Healthcare: No Physician Review: Patient Assessed, Agree with Above Assessment and Plan Time Spent Managing Pts Care (In Minutes): 65
[2024-06-22 23:37] VITALS: BMI 20.2
[2024-06-22 23:44] LABS: Magnesium 2.2 mg/dL (1.6-2.4); Troponin High Sensitivity 88.9 pg/mL (<58.9)
[2024-06-23 00:23] VITALS: TEMP 97.1
[2024-06-23] MEDS: MIDODRINE HCL 5 MG TABLET PO SCH (04:30)
[2024-06-23 05:21] LABS: Absolute Basophils 0.1 K/uL (0-0.5); Absolute Lymphocytes (CBC) 1.6 K/uL (0.7-4.9); Absolute Monocytes 2.8 K/uL (0.1-1.3); Absolute Neutrophil 25.4 K/uL (1.8-8.0); Basophils % 0.2 % (0-1.3); Eosinophils % 0.1 % (0-4.4); Hematocrit 26.8 % (39.6-49.0); Hemoglobin 7.9 g/dL (13.6-17.9); Lymphocytes % 5.3 % (15.3-44.8); MCH 26.8 pg (27.0-35.0); MCHC 29.6 g/dL (32.0-36.0); MCV 90.7 fL (80-100); MPV 9.9 fL (7.6-11.3); Monocytes % 9.4 % (3.3-12.3); Platelets 303 thou/uL (152-406); RBC Red Blood Cell Count 2.95 M/uL (4.33-5.43); Red Cell Distribution Width 16.8 % (12.1-15.2)
[2024-06-23 05:32] VITALS: BP 86/64
[2024-06-23 05:47] LABS: Albumin 2.1 g/dL (3.4-5.0); Albumin/Globulin Ratio 0.8 (1.1-1.8); Anion Gap 21.6 mEq/L (5.0-15.0); Bilirubin Total 0.7 mg/dL (0.2-1.0); Globulin 2.5 g/dL (2.3-3.5); Potassium 5.6 mEq/L (3.5-5.1); Protein, Total 4.6 g/dL (6.4-8.2)
[2024-06-23 05:49] LABS: Troponin High Sensitivity 89.1 pg/mL (<58.9)
[2024-06-23] MEDS: MIDODRINE HCL 5 MG TABLET PO ONE (06:11)
--- NOTE | 2024-06-23 06:35 | P.PN ---
Date of Service: 06/23/24 Subjective: transferred to ICU yesterday given low BP difficulty waking patient, fatigued, drowsy, bradycardic in 30-40s during morning rounds. minimally responsive. code blue called this morning. ROS: 10 point ROS as noted above, otherwise negative Physical Exam: GEN: Alert, oriented, NAD HEENT: Normal conjunctiva, sclera anicteric, CV: Regular rate and rhythm, no edema Pulm: Nonlabored respirations on room air, clear bilaterally ABD: soft, nontender, nondistended Integumentary: No rashes Neuro: Normal speech, normal affect Problem List: shock, unknown etiology; possible septic vs hypovolemic Coffee ground emesis / ?upper GI bleed Hypotension Syncope lactatemia CAN Leukocytosis COVID-19 infection, acute COPD, emphysema; chronic h/o hypertension h/o Parkinson's h/o GERD / Gastric ulcer years ago h/o constipation
[2024-06-23] MEDS ORDERED: SODIUM CHLORIDE 0.9% 10ML INJ IV PRN (06:39)
[2024-06-23] MEDS ORDERED: NOREPINEPHRINE BITARTRATE/D5W 4 MG/250 ML KIT IV ONE (08:23)
[2024-06-23] MEDS ORDERED: NOREPINEPHRINE 8 MG in D5W 250 ML IV SCH (08:45)
[2024-06-23] MEDS ORDERED: D10W 125 ML IV PRN (08:46)
[2024-06-23] MEDS ORDERED: ASPIRIN EC 81 MG TAB PO SCH (09:00)
[2024-06-23] MEDS ORDERED: MIDODRINE HCL 5 MG TABLET PO SCH ×2 (09:00)
[2024-06-23] MEDS ORDERED: CLOPIDOGREL 75 MG TABLET PO SCH (09:00)
[2024-06-23] MEDS ORDERED: ZINC SULFATE 220 MG CAP PO SCH (09:00)
[2024-06-23] MEDS ORDERED: PANTOPRAZOLE 40 MG INJ IVP SCH (09:00)
[2024-06-23] MEDS ORDERED: GUAIFENESIN 600 MG SA TAB PO SCH (09:00)
[2024-06-23] MEDS ORDERED: FERROUS SULFATE 325 MG TAB PO SCH (09:00)
[2024-06-23] MEDS ORDERED: CARBIDOPA/LEVODOPA 25/100 TAB PO SCH (09:00)
[2024-06-23] MEDS ORDERED: Meropenem 1,000 MG in NA CHLORIDE 0.9% 100 ML IV SCH (09:00)
[2024-06-23] MEDS ORDERED: INSULIN REGULAR (HUMAN) 100 UNIT/ML IV SCH (09:00)
[2024-06-23] MEDS ORDERED: FAMOTIDINE 20 MG TAB PO SCH (09:00)
[2024-06-23] MEDS ORDERED: NIRMATRELVIR/RITONAVIR TABLET PO SCH (09:00)
[2024-06-23 09:40] LABS: Band Neutrophils 1 % (0-1); Blood Morphology Comment NOTED (NOT SEEN); Differential Total Cells Count 100; Lymphocytes 5 % (15-42); Monocytes 6 % (0-10); Myelocytes 2 % (0-0); Platelet Estimate ADEQ; Segmented Neutrophils 86 % (40-80)
[2024-06-23 09:41] LABS: Anisocytosis 1+; Burr Cells 1+; Hypochromasia 1+; Nucleated Red Blood Cells 1 /100WBC; Ovalocytes 1+; Polychromasia 1+
[2024-06-23 10:18] VITALS: O2SAT 94
--- NOTE | 2024-06-23 11:23 | P.DS ---
Admission Date: 06/22/24 Discharge Date: 06/23/24 Reason for Admission: Hypotension, sepsis Consultations: Cardiology - Dr. Riya OBRIEN - Dr. Londono Nephrology - Dr. Carpenter Pulmonology - Dr. Abbasi Brief History of Present Illness: 79-year-old male with past medical history of hypertension, COPD/emphysema, Parkinson's disease, gout, recent COVID treated at [facility] and admitted to rehab. Admitted to inpatient rehab [address] [facility] where he was admitted for ~48hrs with COVID-19 infection. He presented to [facility] with malaise/fatigue, cough, weakness. Rehab nursing staff report patient was noted to be slightly confused last night and this morning was more fatigued appearing, and noted to have low blood pressure and brief syncopal episode after working with physical therapy. His blood pressure was 80s/60s. CT head was performed without any acute findings. Labwork was repeated which noted significant increase in leukocytosis and worsening of his renal function. They report decreased urine output with minimal to no retained urine when evaluated by bladder scan today. He denies any specific worsening / new symptoms. He currently reports having increased weakness and fatigue over the last 24hrs. He was given a liter of NS bolus with improvement, and started on NS at 100 ml/hr, blood cultures obtained. At time of my evaluation, lactate resulted as 4.8, the complete 30cc/kg sepsis bolus was ordered. (received 1.3L of IVF already, and I ordered additional 700ml to be given. Weight: 63kg.) He has been afebrile during his stay here. Hospital Course: Problem List Shock, unknown etiology; Possible septic vs hypovolemic Coffee ground emesis Hypotension Syncope lactatemia CAN Leukocytosis COVID-19 infection, acute COPD, emphysema; chronic h/o hypertension h/o Parkinson's h/o GERD / Gastric ulcer years ago h/o constipation Physical exam: . Vital Signs/Physical Exam: Temp Pulse Resp BP Pulse Ox 97.1 F 61 13 86/64 L 100 06/23/24 05:00 06/23/24 05:00 06/23/24 05:00 06/23/24 05:00 06/23/24 05:00 Laboratory Data at Discharge: WBC 29.80 thou/uL (4.3-10.9) H 06/23/24 05:07 Hgb 7.9 g/dL (13.6-17.9) L D 06/23/24 05:07 Hct 26.8 % (39.6-49.0) L 06/23/24 05:07 Plt Count 303 thou/uL (152-406) 06/23/24 05:07 PT Cancelled 06/23/24 Unknown INR Cancelled 06/23/24 Unknown Sodium 135 mEq/L (136-145) L 06/23/24 05:07 Potassium 5.6 mEq/L (3.5-5.1) H D 06/23/24 05:07 BUN 112 mg/dL (7-18) H 06/23/24 05:07 Creatinine 3.15 mg/dL (0.70-1.30) H 06/23/24 05:07 Glucose 143 mg/dL (74-106) H 06/23/24 05:07 Magnesium Cancelled 06/23/24 22:00 Total Bilirubin 0.7 mg/dL (0.2-1.0) 06/23/24 05:07 AST 564 U/L (15-37) H 06/23/24 05:07 ALT 291 U/L (16-61) H 06/23/24 05:07 Alkaline Phosphatase 59 U/L (45-117) 06/23/24 05:07 Home Medications: Amlodipine [Norvasc] 5 mg PO DAILY 06/19/24 Arformoterol Tartrate [Brovana] 15 mcg NEB BIDRESP 06/19/24 Aspirin [Aspirin EC 81 MG] 1 tab PO DAILY 06/19/24 Atorvastatin Calcium [Lipitor] 40 mg PO BEDTIME 06/19/24 Carbidopa/Levodopa [Carbidopa-Levodopa 25-100 Tab] 2 tab PO BID 06/19/24 Cholecalciferol (Vitamin D3) [Vitamin D 400 IU TAB*] 1 tab PO DAILY 06/19/24 Clopidogrel Bisulfate [Plavix*] 1 tab PO DAILY 06/19/24 Cyanocobalamin (Vitamin B-12) [Vitamin B12] 1,000 mcg PO DAILY 06/19/24 Ferrous Sulfate [Iron] 1 tab PO DAILY 06/19/24 Folic Acid 1 mg PO DAILY 06/19/24 Furosemide [Lasix] 2 tab PO DAILY 06/19/24 Irbesartan 150 mg PO DAILY 06/19/24 Polyethylene Glycol 3350 [Miralax] 1 packet PO DAILY PRN 06/19/24 Potassium Chloride [Klor-Con 10] 10 meq PO DAILY 06/19/24 Tamsulosin [Flomax] 0.4 mg PO DAILY 06/19/24 atenoloL [Atenolol] 1 tab PO DAILY 06/19/24 dexAMETHasone [Decadron] 6 mg PO DAILY 06/19/24 Followup: Ana Harper MD [Primary Care Provider] - Time spent managing pt's care (in minutes): 70
--- NOTE | 2024-06-23 12:02 | P.PN ---
Date of Service: 06/23/24 YADY MIA NOTE: Called to YADY BELLAMY in ICU room 7 at 8:08 AM. On arrival chest compressions were being performed. Rhythm was analyzed showing ventricular fibrillation and shock was administered. See CPR code sheet for code medications. Patient with return of spontaneous circulation. Patient placed on Levophed drip. Medicine team, Dr. Romo, at bedside and care handed over to him. PROCEDURE NOTE: A 7.5 ET tube was placed using a S4 glide scope blade. Tube depth was 25 cm at the teeth. Patient with bilateral breath sounds after tube placement. Condensation noted in ET tube.
[2024-06-23] MEDS ORDERED: ATROPINE SULF 1 MG/10 ML SYR IV ONE (14:19)
[2024-06-23] MEDS ORDERED: AMIODARONE HCL 150 MG/3 ML INJ IV ONE (14:19)
[2024-06-23] MEDS ORDERED: EPINEPHrine 1 MG/10 ML SYR IV ONE (14:19)
[2024-06-23] MEDS ORDERED: MAGNESIUM SULF 1GM/2ML VIAL IV ONE (14:19)
[2024-06-24] MEDS ORDERED: VANCOMYCIN 1.25 GM in NA CHLORIDE 0.9% 250 ML IVPB SCH (16:00)
== END 2024-06-23 14:20 | disposition expired | DRG 871 ==
LOC: 2ND 18:40 → 3RD-ICU 20:19
PROVIDERS: ADMIT Hospitalist; ATTEND Hospitalist
PROC: 4A033R1 Measurement of Arterial Saturation, Peripheral, Percutaneous Approach (ICD-10-PCS; principal; 2024-06-23)
PROC: 5A12012 Performance of Cardiac Output, Single, Manual (ICD-10-PCS; 2024-06-23)
PROC: 30233N1 Transfusion of Nonautologous Red Blood Cells into Peripheral Vein, Percutaneous Approach (ICD-10-PCS; 2024-06-23)
PROC: 0T9B70Z Drainage of Bladder with Drainage Device, Via Natural or Artificial Opening (ICD-10-PCS; 2024-06-23)
PROC: 3E033XZ Introduction of Vasopressor into Peripheral Vein, Percutaneous Approach (ICD-10-PCS; 2024-06-23)
PROC: 0BH17EZ Insertion of Endotracheal Airway into Trachea, Via Natural or Artificial Opening (ICD-10-PCS; 2024-06-23)
DX: A41.89 Other specified sepsis (principal); J12.82 Pneumonia due to coronavirus disease 2019; R65.21 Severe sepsis with septic shock; U07.1 COVID-19; N17.9 Acute kidney failure, unspecified; J44.0 Chronic obstructive pulmonary disease with (acute) lower respiratory infection; I10 Essential (primary) hypertension; J43.9 Emphysema, unspecified; I49.01 Ventricular fibrillation; K21.9 Gastro-esophageal reflux disease without esophagitis; R57.1 Hypovolemic shock; G20.A1 Parkinson's disease without dyskinesia, without mention of fluctuations; M10.9 Gout, unspecified; Z88.0 Allergy status to penicillin; Z88.1 Allergy status to other antibiotic agents; Z86.16 Personal history of COVID-19; Z79.82 Long term (current) use of aspirin; Z79.899 Other long term (current) drug therapy
CPT/HCPCS: 36415; 36600; 80053; 82550; 83735; 84484; 85025; 86850; 86900; 86901; 92950; J0171; J0282; J0461; J3475; J7030; J7060